=== PATIENT | male | born 1940 | race Caucasian/White ===

== ENCOUNTER 2019-12-02 07:07 | Outpatient (CLI) | payer MEDICARE | END 2019-12-02 07:08 | disposition critical access hospital (66) | LOC: EMS 07:07 | PROVIDERS: ATTEND Surgery | DX: R07.9 Chest pain, unspecified (principal) | CPT/HCPCS: A0425; A0427 ==

== ENCOUNTER 2019-12-02 07:33 | Observation (INO) | payer MEDICARE, OTHER ==
--- NOTE | 2019-12-02 08:00 | ED Physician Documentation ---
PD HPI CHEST PAIN - Stated complaint Stated Complaint: L SIDE CHEST PX - Chief complaint Chief Complaint: Cardiac - History obtained from History obtained from: Patient - History of Present Illness Timing - onset: Today Associated symptoms: No: Shortness of air, Nausea, Vomiting Similar symptoms before: Has not had sx before - Additional information Additional information: This is an 79-year-old man who presents with complaints that he woke up this morning around 530 with pain in the left side of his chest. He was not able to describe it. He is never had pain like this before. It was a 6-8 out of 10 but it is now down to 1 out of 10 after the ambulance given aspirin and a nitroglycerin patch tablet. Denies radiation of the pain. He did not feel short of breath, dizzy or sweaty. He had no change in his vision. No nausea or vomiting. He went to bed last night around 1030 and felt perfectly fine when he went to sleep. Denies history of [place] and he has had no recent illness. He lives alone. Review of Systems Constitutional: denies: Fever Eyes: denies: Decreased vision Ears: denies: Ear pain Nose: denies: Congestion Throat: denies: Sore throat Cardiac: reports: Chest pain / pressure. denies: Pedal edema Respiratory: denies: Dyspnea, Cough GI: denies: Abdominal Pain, Nausea, Vomiting : denies: Dysuria Skin: denies: Rash Neurologic: denies: Syncope Endocrine: reports: Other (No history of diabetes) Immunocompromised: denies: Immunocompromised PD PAST MEDICAL HISTORY - Allergies Allergies/Adverse Reactions: Allergies Allergy/AdvReac Type Severity Reaction Status Date / Time No Known Drug Allergies Allergy Verified 12/02/19 07:43 PD ED PE NORMAL - Vitals Vital signs reviewed: Yes - General General: Alert and oriented X 3, No acute distress, Well developed/nourished, Other (Thin 79-year-old man is not in any acute distress.) - HEENT HEENT: Atraumatic, PERRL, EOMI, Moist mucous membranes - Neck Neck: No bony TTP, No adenopathy, Thyroid normal, No JVD, No bruit - Cardiac Cardiac: RRR, No murmur, Strong equal pulses, Other (His pulse is hyperdynamic.) - Respiratory Respiratory: No respiratory distress, Clear bilaterally - Abdomen Abdomen: Normal bowel sounds, Soft, Non tender, Non distended, No organomegaly - Derm Derm: Normal color, Warm and dry, No rash - Extremities Extremities: No edema - Neuro Neuro: Alert and oriented X 3, 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, No motor deficit, No sensory deficit, Normal speech - Psych Psych: Normal mood, Normal affect Results - Vitals Vitals: Vital Signs - 24 hr 12/02/19 12/02/19 12/02/19 07:43 07:52 08:34 Temperature 36.2 C L Heart Rate 79 80 83 Respiratory 18 18 18 Rate Blood Pressure 130/52 L 130/52 L 134/57 H O2 Saturation 97 96 96 12/02/19 12/02/19 12/02/19 09:00 09:58 10:00 Temperature 36.4 C L 36.4 C L Heart Rate 81 90 81 Respiratory 15 18 14 Rate Blood Pressure 138/57 H 136/73 H 136/73 H O2 Saturation 97 97 98 12/02/19 12/02/19 10:44 11:41 Temperature Heart Rate 85 80 Respiratory 18 18 Rate Blood Pressure 110/91 H 137/68 H O2 Saturation 98 98 Oxygen O2 Source Room air - EKG (time done) 0737 Rate: Rate (enter#) (80) Rhythm: NSR Intervals: Normal DC, Prolonged DC Ischemia: Hyperacute T waves (V2-V6), Non specific changes Compare to prior EKG: Old EKG unavailable 0920 Rate: Rate (enter#) (78) Rhythm: NSR Intervals: Prolonged DC. No: Wide QRS Ischemia: Hyperacute T waves (V3-V6) Compare to prior EKG: Unchanged from prior EKG - Labs Labs: Laboratory Tests 12/02/19 12/02/19 12/02/19 08:12 08:12 08:12 WBC 6.2 RBC 3.21 L Hgb 10.7 L Hct 32.6 L MCV 101.6 H MCH 33.3 H MCHC 32.8 RDW 12.8 Plt Count 149 MPV 10.7 Neut # (Auto) 3.5 Lymph # (Auto) 1.1 L Mcdonald # (Auto) 0.5 Eos # (Auto) 1.0 H Baso # (Auto) 0.1 Absolute Nucleated RBC 0.00 Nucleated RBC % 0.0 Manual Slide Review Indicated WBC Morphology NORMAL APPEARANCE Platelet Estimate NORMAL (130-450,000) Platelet Morphology NORMAL APPEARANCE RBC Morph Micro Appear 1+ MACROCYTOSIS Sodium 138 Potassium 4.2 Chloride 104 Carbon Dioxide 24 Anion Gap 10.0 BUN 19 Creatinine 1.0 Estimated GFR (MDRD) 72 L Glucose 130 H Calcium 8.6 Total Bilirubin 0.3 AST 27 ALT 46 Alkaline Phosphatase 70 Troponin I High Sens 9.7 Total Protein 6.7 Albumin 3.2 Globulin 3.5 Albumin/Globulin Ratio 0.9 L Lipase 33 12/02/19 11:50 WBC RBC Hgb Hct MCV MCH MCHC RDW Plt Count MPV Neut # (Auto) Lymph # (Auto) Mcdonald # (Auto) Eos # (Auto) Baso # (Auto) Absolute Nucleated RBC Nucleated RBC % Manual Slide Review WBC Morphology Platelet Estimate Platelet Morphology RBC Morph Micro Appear Sodium Potassium Chloride Carbon Dioxide Anion Gap BUN Creatinine Estimated GFR (MDRD) Glucose Calcium Total Bilirubin AST ALT Alkaline Phosphatase Troponin I High Sens 12.2 Total Protein Albumin Globulin Albumin/Globulin Ratio Lipase PD MEDICAL DECISION MAKING - ED course Complexity details: reviewed results, re-evaluated patient, d/w patient ED course: 09: Patient's initial troponin is normal. His EKG just has some minor nonspecific ST-T wave changes more specifically T wave hyper acute across the lateral leads. His chest x-ray has a very odd appearance with multiple calcifications in the left side they look on a pleural-based. There is no old chest x-ray available for comparison. Of ordered a chest CT. The patient was essentially pain-free after his arrival here in the emergency department. 0915: When I went in to discuss ordering the CT with the patient he wanted to know why we wanted to do that. He says he just does not see the point in spending money since he does not want any treatment done. He reports a history of asbestosis but had no idea what mesothelioma was. He thinks it has been over 10 years since he had a chest x-ray done. Does not know if he ever had a CT scan done.He went on to tell me that his daughter has been missing in [facility] for the past 2 to 3 years he has not been able to get in contact with her. His son lives in [place] and he still has a relationship with him but he has not been able to find the daughter either apparently. The patient says he has no idea why she is not been in contact with him. He became very tearful. He was requesting to be discharged home but did did consent to have the CT scan. He started complaining of return of his chest pain so repeat EKG was obtained that does not show any changes from the prior and he refused any further nitroglycerin treatment. 1130: Went in and discussed the CT report that shows asbestosis. His initial troponin was normal and I like to check a 3-hour troponin which she is actually in agreement to at this point. He seems much more animated and cheerful than when I re-evaluated him 2 hours ago. 1307: Repeat troponin was up from 9-12.2 but still within the normal range. He continues to can plane of just some mild discomfort in the chest but is refused any further medication for it. He now has his stepson at the bedside with his . We discussed the results and I feel it is appropriate for him to come in for chest pain observation and he is agreeable at this point. 1359: Dr Meza did accept the patient for observation. Departure - Departure Disposition: ED Place in Observation Clinical Impression: Chest pain Qualifiers: Chest pain type: unspecified Qualified Code(s): R07.9 - Chest pain, unspecified Condition: Good
[2019-12-02 08:18] LABS: BASOPHILS # (AUTO) 0.1 10^3/uL (0.0-0.1); BASOPHILS % (AUTO) 0.8 %; EOSINOPHILS % (AUTO) 16.9 %; HGB - HEMOGLOBIN 10.7 g/dL (14.0-18.0); LYMPHOCYTES # (AUTO) 1.1 10^3/uL (1.5-3.5); LYMPHOCYTES % (AUTO) 17.7 %; MEAN CORPUSCULAR HEMOGLOBIN 33.3 pg (27.0-31.0); MEAN CORPUSCULAR HGB CONC 32.8 g/dL (32.0-36.0); MEAN CORPUSCULAR VOLUME 101.6 fL (80.0-94.0); MEAN PLATELET VOLUME 10.7 fL (7.4-11.4); MONOCYTES # (AUTO) 0.5 10^3/uL (0.0-1.0); MONOCYTES % (AUTO) 8.3 %; NEUTROPHILS # (AUTO) 3.5 10^3/uL (1.5-6.6); NEUTROPHILS % (AUTO) 55.8 %; PLT - PLATELET COUNT 149 10^3/uL (130-450); RED BLOOD COUNT 3.21 10^6/uL (4.70-6.10); RED CELL DISTRIBUTION WIDTH 12.8 % (12.0-15.0); WHITE BLOOD COUNT 6.2 x10^3/uL (4.8-10.8)
--- NOTE | 2019-12-02 08:27 | XRAY Report ---
Reason: chest pain Procedure Date: 12/02/2019 Accession Number: [id number] / [id number] Procedure: XR - Chest 1 View X-Ray CPT Code: 91959 Final Report FULL RESULT: EXAM: CHEST RADIOGRAPHY EXAM DATE: 12/02/2019 08:18 AM. CLINICAL HISTORY: Chest pain, left-sided, in an 79-year-old male. COMPARISON: None. TECHNIQUE: 0802 hour AP upright portable view. FINDINGS: Lungs/Pleura: Satisfactory inspiratory effort. Findings most suggestive of calcified nodules bilaterally. Small right pleural effusion with question of minimal left pleural effusion. No pneumothorax. Mediastinum: Heart size normal, without pulmonary vascular congestion or adenopathy. Other: Trachea is midline. Osseous structures are unremarkable. IMPRESSION: Calcified nodule suggesting old granulomatous disease. Probable small right pleural effusion, with question of minimal left pleural effusion. No definite infiltrate. RADIA
[2019-12-02 08:31] LABS: ALBUMIN 3.2 g/dL (3.2-5.5); ALBUMIN/GLOBULIN RATIO 0.9 (1.0-2.2); BILIRUBIN,TOTAL 0.3 mg/dL (0.2-1.0); CALCIUM 8.6 mg/dL (8.5-10.3); TOTAL PROTEIN 6.7 g/dL (6.7-8.2)
[2019-12-02 08:45] LABS: PLATELET ESTIMATE, MANUAL NORMAL (130-450,000) (NORMAL); PLATELET MORPHOLOGY NORMAL APPEARANCE (NORMAL); RBC MORPHOLOGY (MULTIPLE) 1+ MACROCYTOSIS (NORMAL)
[2019-12-02] MEDS ORDERED: IOVERSOL 320 100 ML VIAL IVP ONE ×2 (09:15→09:46)
--- NOTE | 2019-12-02 09:57 | CT Report ---
Reason: abnormal cxr Procedure Date: 12/02/2019 Accession Number: [id number] / [id number] Procedure: CT - CHEST W CPT Code: Final Report FULL RESULT: EXAM: CT CHEST EXAM DATE: 12/02/2019 09:45 AM. CLINICAL HISTORY: Abnormal cxr. COMPARISONS: CHEST 1 VIEW 12/02/2019 8:02 AM. TECHNIQUE: Routine helical CT imaging was performed through the chest. IV contrast: None. Reconstructions: Coronal and sagittal. In accordance with CT protocol optimization, one or more of the following dose reduction techniques were utilized for this exam: automated exposure control, adjustment of mA and/or KV based on patient size, or use of iterative reconstructive technique. 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 There is some associated scattered mild subpleural reticulations and linear scarlike changes seen, mostly in the lung bases. In the posterior right upper lobe there is a small area of segmental airway thickening and ill-defined tree-in-bud opacities suggesting small airway disease of uncertain acuity. There is no consolidation or effusion. No pneumothorax. Mediastinum: Heart size is normal with no pericardial effusion. Extensive calcified coronary artery disease is seen. No lymphadenopathy. Bones: Scattered degenerative changes are seen in the spine. A minor compression deformity at T2 is seen. Generalized osteopenia is present. Visualized Abdomen: Unremarkable. Other: None. IMPRESSION: 1. 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 Minor fibrosis is seen in association. 2. Small segmental area of tree-in-bud opacities suggesting small airway disease of uncertain acuity. No consolidation or effusion. 3. Age-indeterminate minor T2 compression fracture, generalized osteopenia, and superimposed mild degenerative changes. RADIA
[2019-12-02] MEDS ORDERED: ONDANSETRON ODT 4 MG TABLET TL PRN (14:01)
[2019-12-02] MEDS ORDERED: ONDANSETRON 4 MG/2 ML VIAL IVP PRN (14:01)
[2019-12-02] MEDS ORDERED: SODIUM CHLORIDE FLUSH 0.9% 10 ML SYRINGE IVP PRN (14:01)
[2019-12-02] MEDS ORDERED: ACETAMINOPHEN 325 MG TABLET PO PRN (14:01)
[2019-12-02] MEDS ORDERED: NITROGLYCERIN SL 0.4 MG TABLET SL PRN (14:03)
--- NOTE | 2019-12-02 14:21 | HISTORY & PHYSICAL EXAMINATION ---
Chief Complaint - Chief Complaint Chief Complaint: chest pain History of Present Illness - Admitted From Admitted From:: [facility]/ER - History Obtained From Records Reviewed: Enedina Delgadillo History obtained from: Patient and ER MD Exam Limitations: his reluctance to be here. - History of Present Illness HPI Comment/Other: Interesting gentleman who does not believe in physicians. Very reluctant to have come in in the first place. But he comes in with chest pain. Risk factors include male sex, family history but he denies high blood pressure, diabetes, smoking, hyperlipidemia. The chest pain is substernal, nonradiating. He denied nausea or diaphoresis with it. No radiation to the jaw or the arm. EMS was called and it did respond to sublingual nitroglycerin and he was also given an aspirin. In the emergency room he was normotensive afebrile and oxygenating normally on room air. Had a negative physical exam. Initial troponin was 9.7. Repeat troponin was 12.2. EKG had no specific changes of ischemia. T waves are slightly peaked in V2 V3 and V4. He has sinus rhythm with a slightly prolonged TN interval of 218 ms. He has an RSR pattern in V1. -17 degree axis deviation. He is now placed in observation for repeat troponin in 6 hours. He is happy about that and does not want a stay beyond that. History - Past Medical History Respiratory: reports: Asthma (uses inhales as rx'd and is controlled. ) Neuro: reports: Dementia (mild cognitive of aging), Tremors (essential) GI: reports: Chronic diarrhea (Stool neg 06/2019) : reports: Benign prostate hypertrophy, Retention, Nocturia (up to twice or none a night) HEENT: reports: Other (seasonal allergic rhinitis) Musculoskeletal: reports: Chronic back pain (for decades, mild to mod, waxes and wanes, managed by OTC meds and chiropracter), Other (history of arm fracture) - Past Surgical History HEENT: reports: Tonsil/Adenoidectomy - Family & Social History Family History Comment/Other: Father from complications of dementia. Mother from heart disease and had thyroid problems. Brother of lung cancer. 1 son and 1 daughter alive and well. Living arrangement: Assisted living Living Situation: Alone Social History Notes: From [place], moved here February 2019. to be close family (ivelisse who lives in [place] but has cabin [place] [address] and moved to [facility] in [place]. Doesn't read or write. Step son is POA for [employer] and finances. [facility] [phone]. Never smoked. Rarely drinks. - Substance History Use: Uses substance without health or social issues: NONE - POLST Patient has POLST: No Meds/Allgy - Home Medications Home Medications: Ambulatory Orders Medication Instructions Recorded Confirmed Albuterol Sulfate [Albuterol 2 puffs INH Q4H PRN 12/02/19 12/02/19 Sulfate Hfa] Beclomethasone Dipropionate [Qvar 2 puffs INH QPM 12/02/19 12/02/19 Redihaler (80 mcg)] Fluticasone [Flonase] 2 sprays SUSHANT DAILY PRN 12/02/19 12/02/19 Multivitamin [Theragran] 1 each PO DAILY 12/02/19 12/02/19 Cumming-3 Fatty Acids/Fish Oil 1 each PO DAILY 12/02/19 12/02/19 [Cumming-3 Fish Oil 1,000 mg Sfgl] Saw/Py/Net/Pumpk/Beta/Ly/Zn/Cu 1 each PO DAILY 12/02/19 12/02/19 [Prostate Control Softgel] - Allergies Allergies/Adverse Reactions: Allergies Allergy/AdvReac Type Severity Reaction Status Date / Time No Known Drug Allergies Allergy Verified 12/02/19 07:43 Review of Systems - Constitutional Constitutional: reports: Weight loss. denies: Fatigue, Fever, Chills, Malaise - Eyes Eyes: denies: Amaurosis, Blurred vision, Vision loss - Ears, Nose & Throat Ears, Nose & Throat: denies: Nasal pain, Sore throat, Hoarseness - Cardiovascular Cariovascular: denies: Irregular heart rate, Palpitations, Edema, Lightheadedness, Exertional dyspnea, Decr. exercise tolerance - Respiratory Respiratory: reports: Wheezing (with his asthma but none now). denies: Cough, Sputum production - Gastrointestinal Gastrointestinal: reports: Diarrhea. denies: Abdominal pain, Abdominal distention, Constipation - Genitourinary Genitourinary: reports: Urgency, Nocturia. denies: Dysuria, Frequency, Hematuria - Musculoskeletal Musculoskeletal: reports: Joint pain. denies: Muscle pain, Back pain, Muscle aches - Integumentary Integumentary: reports: Rash, Pruritis, Lesions, Dryness - Neurological Neurological: denies: General weakness, Focal weakness, Headache - Psychiatric Psychiatric: denies: Depression, Anxiety, Suicidal Prior Level of Functionality: He is able to dress himself, feed himself. No longer drives. His son is now taking care of his financial matters. Exam - Vital Signs Reviewed Vital Signs: Yes Vital Signs: Vital Signs x48h Temp Pulse Resp BP Pulse Ox 12/02/19 11:41 80 18 137/68 H 98 12/02/19 10:44 85 18 110/91 H 98 12/02/19 10:00 36.4 C L 81 14 136/73 H 98 12/02/19 09:58 90 18 136/73 H 97 12/02/19 09:00 36.4 C L 81 15 138/57 H 97 12/02/19 08:34 83 18 134/57 H 96 12/02/19 07:52 80 18 130/52 L 96 12/02/19 07:43 36.2 C L 79 18 130/52 L 97 - Physical Exam General Appearance: positive: No acute distress, Alert, Other (5 foot 8 inches elderly gentleman who weighs 66.5 kg and appears slightly cachectic, exhausted the circles under his eyes. But otherwise comfortable.) Eyes Bilateral: positive: PERRL, EOMI ENT: positive: Other (He has slight postnasal drip, blowing of his nose, nasal tone of voice. Even though he denies sore throat or hoarseness I find his voice to be a little low and hoarse.Bilateral temporal wasting. Gaunt appearing) Neck: positive: No JVD, Lymphadenopathy (R) (Shotty), Lymphadenopathy (L) (Shotty) Respiratory: positive: Chest non-tender, Wheezes (Very faint, bilateral, comes and goes. Occasional cough that is productive of clear phlegm. He says this is normal for him. This is his baseline state.) Cardiovascular: positive: Regular rate & rhythm. negative: Systolic murmur, Gallop/S4, Friction rub Peripheral Pulses: positive: 1+ Abdomen: positive: Non-tender, No organomegaly, Nml bowel sounds, No distention. negative: Guarding, Rebound Skin: positive: Warm, Dry, Pallor Extremities: positive: Full ROM, No pedal edema Neurologic/Psychiatric: positive: Oriented x3, CN's nml (2-12), Motor nml Conclusion/Plan - Problem List (1) Chest pain Conclusion/Plan: Risk factors as stated in history of present illness. Chest pain responsive to nitroglycerin. First 2 sets of enzymes negative. On the weekend we do not have nuclear medicine stress testing or Yevgeniy protocol stress testing. He will get his third set. Be sent home on aspirin, and I will ask his primary care provider to please refer him for stress testing if the patient desires. He appears to express a philosophical bend about physicians, doctors, intervention. It was enough to get him to come in for a rule out AR, that I do not know if he will cooperate with being referred for a stress test. Qualifiers: Chest pain type: unspecified Qualified Code(s): R07.9 - Chest pain, unspecified (2) Anemia, macrocytic Conclusion/Plan: Anemia panel. Patient is not an alcoholic. (3) Hyperglycemia Conclusion/Plan: Random glucose. No history of diabetes. Check A1c. - Lab Results Lab results reviewed: Yes Fish Bones: 12/02/19 08:12 12/02/19 08:12 - EKG Results EKG Interpreted Independently: No EKG Comparison: No prior EKG EKG Findings: Normal sinus rhythm. RSR' in V1. No acute ST-T wave changes. Core Measures - Anticipated LOS I expect patient to be DC'd or transferred within 96 hours.: Yes - DVT/VTE - Prophylaxis VTE/DVT Device ordered at admit?: Yes
--- NOTE | 2019-12-02 15:10 | HISTORY & PHYSICAL EXAMINATION ---
Chief Complaint - Chief Complaint Chief Complaint: Left-sided chest pain <Loida Stewart - Last Filed: 12/02/19 17:29> History of Present Illness - Admitted From Admitted From:: Emergency room - History Obtained From Records Reviewed: Yes History obtained from: Patient and record <Loida Stewart - Last Filed: 12/02/19 17:29> - History of Present Illness HPI Comment/Other: Mr. Johnson is an 79 yo gentleman with PMH of lower back pain, BPH, diarrhea, mild asthma, CKD, GERD, benign essential tremors who presents with left chest pain. Patient woke up with 6/10 pain and pressure to this left chest. He called EMS. Patient was given aspirin and nitrates on the transport to the hospital. The pain went away shortly thereafter. Vital signs have been stable with heart rate in the 70s, BPs 130-150s over 90s, respiratory rate in teens, sating 98% on room air. Troponin I at 0800 and noon were negative. Chest x-ray 12/02/2019 showed extensive pleural calcifications consistent with asbestos related pleural plaque disease, small segmental area of tree-in-bed opacities suggesting small airway disease of uncertain acuity, and age-indeterminte minor T2 compression fracture, generalized osteopenia, and superimposed mild degenerative changes. Chest CT 12/02/2019 calcified nodule suggesting old granulomatous disease. (Loida Stewart) History - Past Medical History Respiratory: reports: Asthma (uses inhales as rx'd and is controlled. ) Neuro: reports: Dementia (mild cognitive of aging) GI: reports: GERD, Chronic diarrhea (Stool neg 06/2019) : reports: Benign prostate hypertrophy, Retention, Nocturia (up to twice or none a night), Other (CKD) HEENT: reports: Other (seasonal allergic rhinitis) Psych: reports: Depression Musculoskeletal: reports: Chronic back pain (for decades, mild to mod, waxes and wanes, managed by OTC meds and chiropracter), Other (history of arm fracture) Derm: reports: None MRSA Hx?: No - Past Surgical History Ortho: reports: Other (Right arm fracture when he was young) HEENT: reports: Tonsil/Adenoidectomy - Family & Social History Family History: Mother: , CAD, Father: , Alzheimer's Disease, Sister: , Brother: Family History Comment/Other: Father from complications of dementia. Mother from heart disease and had thyroid problems. Brother of lung cancer. 1 son and 1 daughter alive and well. Living arrangement: Assisted living Living Situation: Alone Social History Notes: From [place], moved here February 2019. to be close family (ivelisse who lives in [place] but has cabin on [address]) and moved to [facility] in [place]. Doesn't read or write. Step son is POA for [employer] and finances. [facility] [phone]. Never smoked. Rarely drinks. - Substance History Use: Uses substance without health or social issues: NONE (Former smoker. Quit 20 years ago.) - POLST Patient has POLST: No <Loida Stewart - Last Filed: 12/02/19 17:29> Meds/Allgy <Loida Stewart - Last Filed: 12/02/19 17:29> <Samantha Meza - Last Filed: 12/02/19 17:40> - Home Medications Home Medications: Ambulatory Orders Medication Instructions Recorded Confirmed Albuterol Sulfate [Albuterol 2 puffs INH Q4H PRN 12/02/19 12/02/19 Sulfate Hfa] Beclomethasone Dipropionate [Qvar 2 puffs INH QPM 12/02/19 12/02/19 Redihaler (80 mcg)] Fluticasone [Flonase] 2 sprays SUSHANT DAILY PRN 12/02/19 12/02/19 Multivitamin [Theragran] 1 each PO DAILY 12/02/19 12/02/19 [place]-3 Fatty Acids/Fish Oil 1 each PO DAILY 12/02/19 12/02/19 [[place]-3 Fish Oil 1,000 mg Sfgl] Saw/Py/Net/Pumpk/Beta/Ly/Zn/Cu 1 each PO DAILY 12/02/19 12/02/19 [Prostate Control Softgel] - Allergies Allergies/Adverse Reactions: Allergies Allergy/AdvReac Type Severity Reaction Status Date / Time No Known Drug Allergies Allergy Verified 12/02/19 07:43 Review of Systems - Constitutional Constitutional: reports: Weight loss (Related to prolonged two month bout of diarrhea). denies: Fever - Eyes Eyes: reports: Vision loss, Corrective lenses - Ears, Nose & Throat Ears, Nose & Throat: reports: Sore throat - Respiratory Respiratory: reports: Cough - Genitourinary Genitourinary: denies: Dysuria - Musculoskeletal Musculoskeletal: denies: Muscle pain - Neurological Neurological: denies: Seizures - Psychiatric Psychiatric: reports: Depression <Loida Stewart - Last Filed: 12/02/19 17:29> <Loida Stewart - Last Filed: 12/02/19 17:29> Prior Level of Functionality: Patient lives in an adult family living facility. He has a durable power of staff weapons officer for finances who is his step-son. He has mild dementia. (Loida Stewart) Exam - Vital Signs Reviewed Vital Signs: Yes - Physical Exam General Appearance: positive: No acute distress, Alert Eyes Bilateral: positive: Normal inspection, PERRL ENT: positive: No signs of dehydration Neck: positive: Nml inspection, Trachea midline Respiratory: positive: Chest non-tender, No respiratory distress, Breath sounds nml Cardiovascular: positive: Regular rate & rhythm, No murmur, No gallop Peripheral Pulses: positive: 2+ Abdomen: positive: Non-tender, Nml bowel sounds, No distention Back: positive: Nml inspection Skin: positive: Color nml, No rash, Warm, Dry Extremities: positive: Non-tender, Full ROM, Nml appearance, No pedal edema Neurologic/Psychiatric: positive: Oriented x3, Mood/affect nml <Loida Stewart - Last Filed: 12/02/19 17:29> - Vital Signs Vital Signs: Vital Signs x48h Temp Pulse Resp BP Pulse Ox 12/02/19 11:41 80 18 137/68 H 98 12/02/19 10:44 85 18 110/91 H 98 12/02/19 10:00 36.4 C L 81 14 136/73 H 98 12/02/19 09:58 90 18 136/73 H 97 12/02/19 09:00 36.4 C L 81 15 138/57 H 97 12/02/19 08:34 83 18 134/57 H 96 12/02/19 07:52 80 18 130/52 L 96 12/02/19 07:43 36.2 C L 79 18 130/52 L 97 Conclusion/Plan - Problem List (1) Chest pain Conclusion/Plan: CP upon waking. 6/10 pain. [place] like pressure on his chest. Patient was given aspirin and nitrates on the transport to the hospital. The pain went away shortly thereafter. Vital signs have been stable with heart rate in the 70s, BPs 130-150s over 90s, respiratory rate in teens, sating 98% on room air. Troponin I at 0800 and noon were negative. Chest x-ray 12/02/2019 showed extensive pleural calcifications consistent with asbestos related pleural plaque disease, small segmental area of tree-in-bed opacities suggesting small airway disease of uncertain acuity, and age-indeterminte minor T2 compression fracture, generalized osteopenia, and superimposed mild degenerative changes. Chest CT 12/02/2019 calcified nodule suggesting old granulomatous disease. 1. Third troponin at 1999. Qualifiers: Chest pain type: unspecified Qualified Code(s): R07.9 - Chest pain, unspecified (2) Anemia, macrocytic Conclusion/Plan: On CBC, MCV 101.6, MCH 33.3, macrocytosis, RBC micro morpholgy appearance 1+ macrocytic. 1. Draw anemia panel. - Lab Results Fish Bones: 12/02/19 08:12 12/02/19 08:12 - Diagnostic Imaging Results Diagnostic Imaging Results: positive: Final report reviewed, See rad report - EKG Results EKG Interpreted Independently: Yes <Loida Stewart - Last Filed: 12/02/19 17:29> - Problem List (1) Chest pain Qualifiers: Chest pain type: unspecified Qualified Code(s): R07.9 - Chest pain, unspecified - Lab Results Fish Bones: 12/02/19 08:12 12/02/19 08:12 <Samantha Meza - Last Filed: 12/02/19 17:40>
--- NOTE | 2019-12-02 16:45 | PHARMACY PROGRESS NOTE ---
- Best Possible Medication History Admit Date and Time: 12/02/19 1401 Processed by: Pharmacy Medication History completed: Yes Patient Interview: Pt unable to participate Secondary Source(s): Physician records, Facility MAR as ONLY source As the person ultimately responsible for medication therapy, providers are able to order a medication from an existing home medication list in [facility] via the "Reconcile Routine" prior to Confirmation of that medication by ground support equipment mechanic. Such practice is discouraged except when the physician, in their clinical judgment, deems that a medical need exists for a medication without regard to previous use.
[2019-12-02] MEDS ORDERED: SODIUM CHLORIDE FLUSH 0.9% 10 ML SYRINGE IVP SCH (17:00)
[2019-12-02 17:39] LABS: ABSOLUTE RETICS # AUTO 0.047 10^6/uL (0.020-0.110); RED BLOOD COUNT 3.26 10^6/uL (4.70-6.10)
--- NOTE | 2019-12-02 18:00 | Discharge Plan ---
Discharge Plan Problem Reviewed?: Yes Disposition: Home, Self Care Condition: Good Prescriptions: Aspirin 81 mg PO DAILY #30 tab.chew Diet: Low Sodium Activity Restrictions: Activity as Tolerated Shower Restrictions: No Driving Restrictions: No Health Concerns: You presented to the hospital with chest pain that seem to be typical of somethi ng that we call angina, which is spasming of a heart artery causing heart pain. It responded to sublingual nitroglycerin when the ambulance was called. In the emergency room your EKG was normal. It had no changes. We draw blood test called cardiac enzymes to make sure you are not having any muscle damage and all 3 sets have been negative. You do have risk factors for heart disease which include male sex, family history but you are not a smoker, do not have diabetes, and do not have high cholesterol. Plan of Treatment: 1. Please see your primary care provider in follow-up. At this time it is Dr. Miller. If he is not available see any provider in that office. 2. Your primary care provider office will need to refer you for a stress test. Care Goals: You have stated that you want to stay out of hospitals as much as possible. Please discuss this with your providers so they can make plans to help you in that goal. Assessment: Patient states that he understands plan. Will follow through with primary care provider. No Smoking: If you smoke, Please STOP! Call for help.
[2019-12-02 18:02] LABS: % IRON SATURATION 19 % (20-50); IRON 57 ug/dL (45-182); TOTAL IRON BINDING CAPACITY 293 ug/dL (250-450); TRANSFERRIN 209 mg/dL (180-329)
[2019-12-02 18:02] LABS: HB2 TOTAL 10.1 g/dL; HEMOGLOBIN A1C 0.45 g/dL; HEMOGLOBIN A1C % 6.2 % (4.6-6.2)
[2019-12-02 18:13] LABS: FERRITIN 40.2 ng/mL (23.9-336.2)
[2019-12-02 19:42] VITALS: BP 136/66
[2019-12-02] MEDS ORDERED: ATORVASTATIN 40 MG TABLET PO SCH (21:00)
[2019-12-03] MEDS ORDERED: ASPIRIN EC 81 MG TABLET PO SCH (09:00)
--- NOTE | 2019-12-20 12:56 | DISCHARGE SUMMARY ---
Physician: Samantha Meza MD DATE OF ADMISSION: 12/02/2019 DATE OF DISCHARGE: 12/02/2019 DISCHARGE DIAGNOSES 1. Chest pain. 2. Anemia, macrocytic. 3. Hyperglycemia. DISCHARGE MEDICATIONS 1. Albuterol inhaler every 4 hours as needed. 2. QVAR 2 puffs every evening. 3. Flonase nasal spray every evening. 4. Multivitamin daily. 5. [place]-3 fish oil daily. 6. Aspirin 81 mg daily. PRINCIPAL PROCEDURES 1. Serial cardiac enzymes. 2. A1c of 6.2%. HOSPITAL COURSE: The patient was admitted as a rule-out MA because of chest pain. During his stay, serial cardiac enzymes were negative. He was also noted as having some anemia, where iron was 57, TI BC 293, percent saturation 19, transferrin 209. Ferritin 40.2. LDH 196. Vitamin B12 high at 1340. Once serial cardiac enzymes were negative, the patient was felt stable for discharge. It is unclear if this is cardiac in nature and we explained to him that he might be a candidate for a nuclear medi cine stress test in the outpatient setting. Also noted was mild hyperglycemia with an A1c of 6.2%. We have asked him to see his primary care provider to get referred for a stress test. He was very ad amant that he wanted to stay out of the hospital as much as possible. He was very reluctant to have been admitted in the first place. I told him that if he had a specific philosophy of how he wanted t o be taken care of, to please do advanced care planning conversation with Dr. Miller or his primary care provider, whomever he sees. He is discharged in stable condition. PHYSICAL EXAMINATION VITAL SIGNS: Temperature 36.6, pulse 78, blood pressure 136/66, respirations 20, 97% on room air. GENERAL: Alert, oriented, elderly gentleman who is 5 feet 8 inches tall, weighs 66.5 kg. NECK: Supple. No carotid bruits. LUNGS: Clear with a regular rate and rhythm. CARDIAC: Regular rate and rhythm. No ataxia with walking. No edema. cc: Darnell Miller MD TD: 12/20/2019 12:03
== END 2019-12-02 19:30 | disposition home or self-care (01) ==
LOC: EDUNIT# → ED 07:33 → MS3 14:01
PROVIDERS: ADMIT Specialist; ATTEND Specialist
DX: R07.2 Precordial pain (principal); J92.0 Pleural plaque with presence of asbestos; D53.9 Nutritional anemia, unspecified; R73.9 Hyperglycemia, unspecified; J45.909 Unspecified asthma, uncomplicated; F03.90 Unspecified dementia, unspecified severity, without behavioral disturbance, psychotic disturbance, mood disturbance, and anxiety; Z79.899 Other long term (current) drug therapy; Z79.51 Long term (current) use of inhaled steroids; Z82.49 Family history of ischemic heart disease and other diseases of the circulatory system
CPT/HCPCS: 36415; 71045; 71260; 80053; 82607; 82728; 83036; 83540; 83615; 83690; 84466; 84484; 85025; 85045; 93005; 99284; 99285; G0378; Q9967

== ENCOUNTER 2020-05-10 13:09 | Outpatient (CLI) | payer MEDICARE | END 2020-05-10 13:10 | disposition home or self-care (01) | LOC: COV 13:09 | PROVIDERS: ATTEND Family Medicine | DX: R19.7 Diarrhea, unspecified (principal); Z20.828 Contact with and (suspected) exposure to other viral communicable diseases ==